=== PATIENT | female | born 1965 | race Caucasian/White ===

== ENCOUNTER 2018-07-30 07:00 | Observation (INO) | payer BC ==
[~2018-07-30] VITALS: Ht 165.1 cm; Wt 129.3 kg
[~2018-07-30 07:00] MED LIST: ARNUITY ELLIPT50 MCG INH; CITALOPRAM HBR20 MG PO; CITALOPRAM HBR40 MG PO; DICLOFENAC SODI75 MG PO; GABAPENTIN300 MG PO; HYDROCHLOROTHIA25 MG PO; LISINOPRIL-HCT1 EAC2 PO; MULTIVITAMINS1 EAC7 PO; NORCO 5-325 TA1 EACH PO; ULTRAM50 MG PO
--- NOTE | 2018-07-30 11:09 | NUR ---
07/30/18 1109 Ibeth Pleitez 1035 PT ARRIVED IN PACU SLEEPY WITH NO C/O'S. 1040 OXYGEN DECREASED TO 6L VIA MASK WITH SATS 100%. 1045 OXYGEN REMOVED. SATS 94% ON RA. CRYO CUFF PLACED ON L SHOULDER. 1053 C/O L SHOULDER PAIN 4/10. FENTANYL 25MCG GIVEN IVP. 1059 SIMMONS INCREASED TO 7/10. C/O "ACHEY FEELING." FENTANYL 25MCG GIVEN IVP. 1102 PAIN DECREASED TO 5/10. FENTANYL 25MCG GIVEN IVP. SATS DECREASED TO 90% ON RA. ENCOURAGED DEEP BREATHING AND SATS NOW 99% ON RA. 1109 C/O L SHOULDER PAIN 5/10. FENTANYL 25MCG GIVEN IVP.
--- NOTE | 2018-07-30 12:09 | NUR ---
PT TO FLOOR, TO ROOM 125 VIA BED, ACCOMPANIED BY MINDY FONG AT 1150. PT REPORTED PAIN TO LEFT SHOULDER 3/10 AT THAT TIME, NOW RATES PAIN 2/10. ESTIVEN DRESSING C/D/I. SLING TO LEFT ARM IN PLACE, IS CRYO CUFF. TOLERATED A GLASS OF ICE WATER. NO C/O NAUSEA. CMS TO LUE INTACT.
--- NOTE | 2018-07-30 12:48 | NUR ---
PT SITTING UP IN BED, EATING CLEAR LIQUID TRAY, TOLERATING WELL. REPORTS PAIN TO LEFT SHOULDER WELL CONTROLLED, 2/10. CMS TO LUE INTACT, PICCO DRESSING WNL.
--- NOTE | 2018-07-30 13:51 | NUR ---
PT DOING WELL. RATES PAIN TO LEFT SHOULDER 2/10, REPORTS THAT THIS IS A TOLERABLE LEVEL FOR HER. CMS TO LUE INTACT, PICCO DRESSING WNL, C/D/I. PERSONAL SUPPLIES AND CALL LIGHT IN REACH.
--- NOTE | 2018-07-30 14:52 | NUR ---
PATIENT UP TO BATHROOM AND BACK TO SITING ON SIDE OF BED, 1 PERSON ASSIST. CALL LIGHT IN REACH. NO FURTHER NEEDS AT THIS TIME.
--- NOTE | 2018-07-30 15:22 | NUR ---
PT SITTING UP AT EDGE OF BED, VISITING WITH FAMILY. GAVE SCHEDULED MEDICATIONS. PT GIVEN FRESH ICE WATER. RATED PAIN TO LEFT SHOULDER 3/10, REPORTED THIS IS TOLERABLE LEVEL OF PAIN. CMS TO LUE INTACT, DRESSING TO LEFT SHOULDER C/D/I, PICCO DRESSING WNL. LUE SLING ON.
--- NOTE | 2018-07-30 18:39 | NUR ---
PT TO FLOOR FOLLOWING SURGERY THIS SHIFT. HAS PICCO DRESSING TO LEFT SHOULDER, C/D/I, WNL. SLING TO LUE, WELL CRYO CUFF. PAIN WELL CONTROLLED WITH SCHEDULED MEDICATIONS AND BLOCK THUS FAR, PT RATES PAIN 2-3/10. CMS TO LUE INTACT. PT UP WITH 1 PERSON ASSIST, URINE OUTPUT QUANTITY SUFFICIENT.
--- NOTE | 2018-07-30 19:18 | NUR ---
RECIEVED CHANGE OF SHIFT REPORT FROM VASQUEZ GUILLEN. PATIENT RESTING IN BED WITH EYES CLOSED, RESPIRATORY RATE EVEN AND UNLABORED, NO SIGN OF TENSING OR GRIMACING. VISITORS AT BEDSIDE. WHITE BOARD UPDATED. CALL LIGHT WITHIN REACH. NO MORE NEEDS AT THIS TIME.
--- NOTE | 2018-07-30 21:18 | NUR ---
ASSESSMENT COMPLETE. MEDICATION ADMINISTRATION COMPLETE PER ORDER. NEW ICE PLACED IN CYRO CUFF. RIVER HOSE, SCDS, HEEL PROTECTORS ON. 2 CM DOT OF DRY DRAINAGE NOTED ON ESTIVEN DRESSING, NO NEW DRAINAGE NOTED. PATIENT DENIES NUMBNESS AND TINGLING IN EXTREMITIES. CAP REFILL LESS THAN 2 SECONDS. PATIENT REPORTS "3/10" PAIN IN LEFT SHOULDER, SCHEDULED PAIN MEDICATION PROVIDED PER ORDER. GREEN LIGHT FLASHING ON ESTIVEN DRAIN. IV ASSESSED TO BE PATENT, NO SIGN OF REDNESS OR SWELLING, PATIENT DENIES PAIN. PATIENT AMBULATED TO RESTROOM SBA, DENIES LIGHTHEADEDNESS. PATIENT REPORTS HER MENSES HAS STARTED, PATIENT USING PERSONAL PERIPADS. ACTIVE BOWEL TONES PRESENT. PATIENT DENIES CHEST PAIN, SOB OR DIFFICULTY BREATHING. CALL LIGHT WITHIN REACH. NO MORE NEEDS AT THIS TIME.
--- NOTE | 2018-07-30 22:47 | NUR ---
PATIENT GIVEN PRN PAIN MEDICATION PER ORDER. PATIENT RATES PAIN AT A 4/10 IN HER LEFT SHOULDER. PATIENT REPOSTIONED IN BED. SNACK PROVIDED. SCHEDULED 2300 MEDS GIVEN PER ORDER. PATIENTS WATER REFILLED. PATIENT DENIES ANY FURTHER NEEDS. CALL LIGHT IN REACH.
--- NOTE | 2018-07-31 01:15 | NUR ---
ROUNDED ON PATIENT RESTING IN BED WITH EYES CLOSED, RESPIRATORY RATE, EVEN AND UNLABORED, CPOX WNL. CALL LIGHT WITHIN REACH. POSSESSIONS AT BEDSIDE.
--- NOTE | 2018-07-31 02:35 | NUR ---
ASSESSMENT COMPLETE. SCHEDULED MEDICATION ADMINISTRATION COMPLETE PER ORDER. PRN PAIN MEDICATION PROVIDED PER ORDER FOR "4/10" PAIN IN LEFT SHOULDER. PATIENT REFUSED HEEL PROTECTORS AT THIS TIME. PATIENT DENIES SOB, DIFFICULTY BREATHING, OR CHEST PAIN. NEW ICE PLACED IN CRYOCUFF. SCDS, RIVER HOSE, AND ESTIVEN DRESSING FLASHING GREEN LIGHT. NO NEW DRAINAGE NOTED ON ESTIVEN DRESSING. PATIENT STATES SHE FEELS CURRENT PAIN MANAGEMENT INTERVENTIONS ARE WORKING. FRESH WATER AND CRACKERS BROUGHT TO PATIENT. CALL LIGHT WITHIN REACH. NO MORE NEEDS AT THIS TIME.
--- NOTE | 2018-07-31 05:15 | NUR ---
ROUNDED ON PATIENT RESTING WITH EYES CLOSED, RESPIRATORY RATE EVEN AND UNLABORED. HR: 61, O2: 93%, CPOX WNL. POSSESSIONS AT BEDSIDE. CALL LIGHT WITHIN REACH.
--- NOTE | 2018-07-31 05:22 | NUR ---
REGULAR DIET. CPOX. CRYOCUFF, SCDs, RIVER HOSE, AND HEEL PROTECTORS. SCANT AMOUNT OF DRY DRAINAGE, SIZE OF 2MM DOT OF DRAINAGE ON ESTIVEN DRESSING, NO NEW DRAINAGE NOTED THOUGHTOUT SHIFT. ESTIVEN DRAIN FLASHING GREEN LIGHT. IS AT BEDSIDE, PATIENT EXPRESSED USE. PRN PAIN MEDICATION X2 THIS SHIFT, PATIENT EXPRESSED THAT PAIN IS WELL MANAGED WITH CURRENT PAIN MANAGEMENT INTERVENTIONS. SBA. ROOM AIR. SALINE LOCKED. LEFT SHOULDER SLING IN PLACE. A&O X 3.
--- NOTE | 2018-07-31 06:22 | NUR ---
ROUNDED ON PATIENT FOR MEDICATION ADMINSTRATION PER ORDER. PRN PAIN MEDICATION PROVIDED FOR "3.5/10" PAIN IN LEFT SHOULDER. VITALS ASSESSED AND RECORDED. INTAKE AND OUTPUT RECORDED. SBA PATIENT TO RESTROOM, PATIENT UP IN CHAIR. ICE IN CRYOCUFF REPLACED. FRESH WATER BROUGHT TO PATIENT. CALL LIGHT WITHIN REACH. NO MORE NEEDS AT THIS TIME.
--- NOTE | 2018-07-31 07:20 | NUR ---
RECIEVED BEDSIDE REPORT FROM SOHAIL MEDLEY. PT SITTING UP IN RECLINER. PERSONAL SUPPLIES AND CALL LIGHT IN REACH.
--- NOTE | 2018-07-31 07:50 | OR ---
[facility] [address] [place], [place] [address] Signed DATE OF OPERATION: 07/30/2018 SURGEON: Elier Goodwin MD PREOPERATIVE DIAGNOSIS: Degenerative joint disease, left shoulder. POSTOPERATIVE DIAGNOSIS: Degenerative joint disease, left shoulder. PROCEDURE PERFORMED: Left shoulder hemiarthroplasty. DIRECTOR PATIENT FINANCIAL SERVICES: HUDSON Hernandez. Allison was present in critical positioning, retraction, and wound closure. ANESTHESIA: General with interscalene block. BLOOD LOSS: 200 mL. IMPLANTS: Parrott size 10 stem, 44 x 16 head. BRIEF HISTORY: Bernabe is a 53-year-old female with progressive worsening of osteoarthritis in her shoulder. She had undergone nonoperative treatment without substantial relief, wished to proceed with operative treatment. Risks and benefits of operative treatment were discussed with her. We did discuss the shoulder hemiarthroplasty in my hands is good as a total and she elected to proceed that way. DESCRIPTION OF PROCEDURE: Once consent was obtained, she was taken to the operating room. After adequate anesthesia, she was placed in a beach chair position. All downside pressure points well padded. The shoulder was prepped and draped in the standard sterile fashion. A standard anterior approach to the deltopectoral interval was taken through skin and subcutaneous tissue. Cephalic vein was identified and retracted laterally and protected. The deltopectoral interval was developed and clavipectoral fascia was Electronically Signed By: ELIER GOODWIN MD 07/31/18 0750 PATIENT NAME: BERNABE SUE OPERATIVE REPORT DATE OF : 67 REPORT #: [id number] PHYSICIAN: ELIER GOODWIN MD PCP: MARILU MCCALL MD REPORT IS CONFIDENTIAL AND NOT TO BE RELEASED WITHOUT AUTHORIZATION [facility] [address] [place], [place] [address] Signed incised and the subdeltoid bursa was removed. It was extensively scarred down to the humerus. Once this was completed, the conjoined tendon was identified, retracted, and protected. The nerve was identified as well. The rotator cuff interval was then developed over the biceps tendon and split to the level of the glenoid. The subscapularis and capsule inferiorly was then dissected. The lesser tuberosity was then osteotomized using a 1 inch curved osteotome and the subscap was mobilized. Two #2 FiberWire sutures were placed in it. The capsule was then released inferiorly around to the 5 o'clock position. The shoulder was then dislocated and the rotator cuff was carefully retracted and protected. The humeral shaft was then entered through the superior end of the humerus using the hand reamers. It was reamed up to 11. The 11 was left in position and the cutting block was then pinned in 30 degrees retroversion. The humeral head cut was then made mcfp across the humerus. The intramedullary guide was then removed. The cut was then taken two-thirds of the way and finished using the osteotome. The bone was excised and taken to the back table for measurement. The osteophytes around the humerus were then removed. The 44 x 16 was selected. The shaft was then broached up to a 10. The 10 was found to be quite well fitting and was left in position. The 44 x 16 eccentric head was then positioned and rotated until it covered well. The shoulder was then reduced. There was 50% posterior subluxation. She was able to reach her opposite shoulder quite easily. A 100 degrees of forward flexion was noted. The trials were then removed. Three drill holes were placed in the tuberosity and the FiberWire sutures were placed through these. Once this was completed, the final stem was impacted until there was about a centimeter broad. The humeral head was then placed on this and rotated again till had good coverage. It was then impacted and the entire thing was impacted and that was well seated. The wound was copiously irrigated with antibiotic solution. The shoulder was reduced and taken through range of motion as noted above and found to be stable. The subscapularis was then repaired back to its position using the previously placed sutures and the drill holes. The rotator cuff interval was closed using #2 FiberWire stitch. Shoulder moved quite well at the end of the procedure. Periarticular soft tissues were injected with 60 mL ropivacaine and Toradol mixture. The deltopectoral was then closed after irrigating the wound. The subcutaneous tissue was closed with 0 Stratafix, and the skin with Super Glue mesh. The wound was dressed with a ProWick dressing. She was awakened and taken to the recovery room in satisfactory condition. All sponge, needle, and instrument counts were correct. Elier Goodwin MD BA/MODL /[id number] Electronically Signed By: ELIER GOODWIN MD 07/31/18 0750 PATIENT NAME: BERNABE SUE OPERATIVE REPORT DATE OF : 67 REPORT #: [id number] PHYSICIAN: ELIER GOODWIN MD PCP: MARILU MCCALL MD REPORT IS CONFIDENTIAL AND NOT TO BE RELEASED WITHOUT AUTHORIZATION [facility] [address] [place], [place] [address] Signed Copies: ~ Electronically Signed By: ELIER GOODWIN MD 07/31/18 0750 PATIENT NAME: BERNABE SUE OPERATIVE REPORT DATE OF : 67 REPORT #: [id number] PHYSICIAN: ELIER GOODWIN MD PCP: MARILU MCCALL MD REPORT IS CONFIDENTIAL AND NOT TO BE RELEASED WITHOUT AUTHORIZATION
[2018-07-31] MEDS ORDERED: OXYCODONE HCL5 MG PO (08:04)
[2018-07-31] MEDS ORDERED: MAPAP500 M1 PO (08:04)
[2018-07-31] MEDS ORDERED: ASPIRIN EC325 MG PO (08:05)
[2018-07-31] MEDS ORDERED: GABAPENTIN600 MG PO (08:05)
[2018-07-31] MEDS ORDERED: SENNA LAX8.6 MG PO (08:05)
[2018-07-31] MEDS ORDERED: MIRALAX17 GM PO (08:05)
--- NOTE | 2018-07-31 09:55 | NUR ---
SPOKE WITH PATIENT IN ROOM. PATIENT STATES SHE LIVES IN [place] WITH . HE WILL BE ABLE TO TAKE HER HOME AND SHE WILL HAVE HELP AT HOME. SHE INTENDS TO DO PHYSICAL THERAPY AT [facility]. SHE STATES SHE LEFT A MESSAGE FOR [facility] AT THE OUTPATIENT [facility] BEFORE HER SURGERY. PATIENT DENIES ISSUES WITH AMBULATION ALTHOUGH SHE STATES SHE HAS BAD KNEES. SHE HAS ONE STEP INTO HOME, NO STAIRS NEEDED INSIDE. PATIENT DENIES ANY BARRIERS TO DISCHARGE HOME. QUESTIONS ANSWERED.
[2018-07-31] MEDS ORDERED: GLUCOSAMIN-CHO1 EACH PO (10:00)
[2018-07-31] MEDS ORDERED: ARTHRITIS PAIN650 M3 PO (10:01)
[2018-07-31] MEDS ORDERED: LIPITOR10 MG PO (10:03)
--- NOTE | 2018-07-31 10:37 | NUR ---
MED REC COMPLETE
--- NOTE | 2018-07-31 10:49 | NUR ---
PT REQUESTED OXYCODONE FOR LEFT SHOULDER PAIN. RATED PAIN 3/10, AND INCREASING. GAVE OXYCODONE 10 MG PO PRN.
--- NOTE | 2018-07-31 11:04 | NUR ---
PT DISCHARGED TO HOME AT 1055 VIA PERSONAL VEHICLE, ACCOMPANIED BY HER SISTER. PT RECIEVED VERBAL AND WRITTEN DISCHARGE INSTRUCTIONS FROM THIS RN PRIOR TO D/C. QUESTIONS ASKED AND ANSWERED, AND PT VERBALIZED UNDERSTANDING. PT ALSO RECIEVED VERBAL AND WRITTEN DISCHARGE MEDICATION EDUCATION FROM BOB, WINSOME.
--- NOTE | 2018-07-31 12:09 | NUR ---
FAXED CHART NOTES, INCLUDING FACE SHEET, ORDER, H AND P, OP NOTE, OT EVAL AND DC NOTE TO [facility]. RECIEVED FAX CONFIRMATION. I ALSO TALKED TO DANYEL FROM [facility] REGARDING THIS ORDER.
--- NOTE | 2018-07-31 12:13 | NUR ---
PT PREPPING FOR DC, FAMILY IN AND JOSE CARLOS ROJAS GETTING PT READY. SHE IS PLEASANT AND LOOKING FORWARD TO DC. EXTENDED A BLESSING, WILL FOLLOW NEEDED
== END 2018-07-31 10:55 | disposition home or self-care (01) ==
LOC: DS 07:00 → MS 07:00 → DSVR 07:00 → EDSTATUS 09:00 → MS 09:00 → DS 10:26 → MS 10:26 → DSVR 11:41 → MS 07-31 10:55
PROVIDERS: ADMIT Specialist
PROC: 3E0T3BZ Introduction of Anesthetic Agent into Peripheral Nerves and Plexi, Percutaneous Approach (ICD-10-PCS; 2018-07-30)
PROC: 0RRK0J6 Replacement of Left Shoulder Joint with Synthetic Substitute, Humeral Surface, Open Approach (ICD-10-PCS; principal; 2018-07-30 09:00)
DX: M19.012 Primary osteoarthritis, left shoulder (principal); G89.18 Other acute postprocedural pain; G89.29 Other chronic pain; K21.9 Gastro-esophageal reflux disease without esophagitis; I10 Essential (primary) hypertension; E66.01 Morbid (severe) obesity due to excess calories; H81.09 Meniere's disease, unspecified ear; Z68.42 Body mass index [BMI] 45.0-49.9, adult; Z79.1 Long term (current) use of non-steroidal anti-inflammatories (NSAID); Z88.5 Allergy status to narcotic agent; Z79.891 Long term (current) use of opiate analgesic; Z79.51 Long term (current) use of inhaled steroids; Z79.899 Other long term (current) drug therapy
CPT/HCPCS: 01630; 64415; 76942; 94762; 96374; 96375; 96376; 97110; 97161; 97165; C1776; G0378; J0330; J0690; J0735; J1100; J1885; J2175; J2250; J2405; J2704; J2765; J3010; J7120